=== PATIENT | female | born 1950 | race Hispanic/Latino ===

== ENCOUNTER 2021-06-13 09:20 | Day surgery (SDC) | payer MEDICARE ==
[~2021-06-13] VITALS: Ht 160 cm; Wt 64.4 kg
[2021-06-13] VITALS (17 sets, daily range): BP systolic 117–159; BP diastolic 61–81
[~2021-06-13 09:20] MED LIST: 0.9%NACL 1000ML 1,000 ML IV ONE
[2021-06-13] MEDS ORDERED: IOHEXOL-350 50ML VIAL IV ONE (10:32)
[2021-06-13] MEDS ORDERED: INDOMETHACIN 50 MG SUPP.RECT RC ONE (11:30)
[2021-06-13] MEDS ORDERED: SUCR1ORA15 PO (12:40)
[2021-06-13] MEDS ORDERED: ATOR10TA69 PO (12:40)
[2021-06-13] MEDS ORDERED: PANT40TA54 PO (12:40)
[2021-06-13] MEDS ORDERED: VITAD50000 PO (12:40)
[2021-06-13] MEDS ORDERED: ICOS1CAP PO (12:40)
[2021-06-13] MEDS ORDERED: SITA100T12 PO (12:40)
[2021-06-13] MEDS ORDERED: DOCU100T9 PO (12:40)
[2021-06-13] MEDS ORDERED: POTA-183 PO (12:40)
[2021-06-13] MEDS ORDERED: LISI10TA24 PO (12:40)
[2021-06-13] MEDS ORDERED: VITA400T9 PO (12:40)
[2021-06-13] MEDS ORDERED: ONDA-105 PO (12:40)
[2021-06-13] MEDS ORDERED: GABA-529 PO (12:40)
[2021-06-13] MEDS ORDERED: GLIP10TA9 PO (12:40)
[2021-06-13] MEDS ORDERED: SERT-440 PO (12:40)
[2021-06-13] MEDS ORDERED: ZOLP10TA2 PO (12:40)
[2021-06-13] MEDS ORDERED: CELE-84 PO (12:40)
[2021-06-13] MEDS ORDERED: METF-446 PO (12:40)
[2021-06-13] MEDS ORDERED: MIDAZOLAM HCL 1 MG/ML 2ML VIAL ONE (12:43)
[2021-06-13] MEDS ORDERED: FENTANYL CITRATE PF 50 MCG/1 ML 2ML VIAL ONE (12:43)
[2021-06-13] MEDS ORDERED: ONDANSETRON 4MG INJ ONE (12:44)
[2021-06-13] MEDS ORDERED: SUCCINYLCHOLINE 200MG/10ML SYR ONE (12:44)
[2021-06-13] MEDS ORDERED: PROPOFOL 10 MG/ML 20ML VIAL IV ONE (13:03)
== END 2021-06-13 16:00 | disposition home or self-care (01) ==
LOC: DAH 09:20
PROVIDERS: ATTEND Internal Medicine Gastroenterology
DX: Z46.59 Encounter for fitting and adjustment of other gastrointestinal appliance and device (principal); Z20.822 Contact with and (suspected) exposure to COVID-19; K80.50 Calculus of bile duct without cholangitis or cholecystitis without obstruction; I10 Essential (primary) hypertension; E11.9 Type 2 diabetes mellitus without complications; F41.9 Anxiety disorder, unspecified; F32.9 Major depressive disorder, single episode, unspecified; M81.0 Age-related osteoporosis without current pathological fracture; M19.90 Unspecified osteoarthritis, unspecified site; Z90.49 Acquired absence of other specified parts of digestive tract; Z98.890 Other specified postprocedural states; Z85.3 Personal history of malignant neoplasm of breast
CPT/HCPCS: 43261; 43262; 43275; 74328; 82948 ×2; 87635; 88112; 88305; 88307; 93005; A4215 ×2; A4216; A4221; A4222; A4223; A4606; A4657; A4663; C1769; C1773; C9803; J0330; J2250; J2405; J2704; J3010; J7030; Q9967; 43273; 74330

== ENCOUNTER 2021-10-18 10:35 | Day surgery (SDC) | payer MEDICARE ==
[~2021-10-18] VITALS: Ht 152.4 cm; Wt 63.0 kg
[2021-10-18] VITALS (14 sets, daily range): BP systolic 116–147; BP diastolic 55–82
[~2021-10-18 10:35] MED LIST changes: -0.9%NACL 1000ML 1,000 ML IV ONE; +ATOR10TA69 PO; +CELE-84 PO; +DOCU100T9 PO; +GABA-529 PO; +GLIP10TA9 PO; +ICOS1CAP PO; +LISI10TA24 PO; +METF-446 PO; +ONDA-105 PO; +PANT40TA54 PO; +POTA-183 PO; +SERT-440 PO; +SITA100T12 PO; +SUCR1ORA15 PO; +VITA400T9 PO; +VITAD50000 PO; +ZOLP10TA2 PO
[2021-10-18] MEDS ORDERED: IOHEXOL-350 50ML VIAL IV ONE (11:52)
[2021-10-18] MEDS ORDERED: SUCR1ORA15 PO (12:23)
[2021-10-18] MEDS ORDERED: LOPE2CAP PO (12:23)
[2021-10-18] MEDS ORDERED: CLOP75TA32 PO (12:23)
[2021-10-18] MEDS ORDERED: AMOX500C2 PO (12:23)
[2021-10-18] MEDS ORDERED: MULT-1378 PO (12:23)
[2021-10-18] MEDS ORDERED: MEGE400O4 PO (12:23)
[2021-10-18] MEDS ORDERED: GLIP1TAB6 PO (12:23)
[2021-10-18] MEDS ORDERED: MULT-1258 PO (12:23)
[2021-10-18] MEDS ORDERED: ACET1TAB25 PO (12:23)
[2021-10-18] MEDS ORDERED: PROPOFOL 10 MG/ML 20ML VIAL IV ONE (12:43)
[2021-10-18] MEDS ORDERED: SUCCINYLCHOLINE 200MG/10ML SYR ONE (12:43)
[2021-10-18] MEDS ORDERED: LIDOCAINE PF 100MG/5ML (2%) SYRINGE 5ML ONE (12:43)
== END 2021-10-18 14:35 | disposition home or self-care (01) ==
LOC: ENDO 10:35 → DAH 10:35 → ENDO 14:30
PROVIDERS: ATTEND Internal Medicine Gastroenterology
DX: R93.2 Abnormal findings on diagnostic imaging of liver and biliary tract (principal); Z20.822 Contact with and (suspected) exposure to COVID-19; K83.8 Other specified diseases of biliary tract; K29.50 Unspecified chronic gastritis without bleeding; K59.00 Constipation, unspecified; I10 Essential (primary) hypertension; E11.9 Type 2 diabetes mellitus without complications; M81.0 Age-related osteoporosis without current pathological fracture; F41.9 Anxiety disorder, unspecified; F32.9 Major depressive disorder, single episode, unspecified; Z85.3 Personal history of malignant neoplasm of breast; Z90.49 Acquired absence of other specified parts of digestive tract
CPT/HCPCS: 43261; 43273; 74328; 87635; 88112; 88305 ×2; 88342; A4215 ×2; A4221; A4222; A4606; A4657; A4663; C1769; C1773; C9803; J0330; J2001; J2704; Q9967; 74330